=== PATIENT | male | born 1975 | race African-American/Black ===

== ENCOUNTER 2019-05-06 03:27 | Emergency (ER) | payer OTHER, SELFPAY ==
[2019-05-06] MEDS ORDERED: LIDOCAINE 1% W/EPI 1:100,000 MDV 20 ML VIAL ONE (03:41)
[2019-05-06] MEDS ORDERED: NA CHLORIDE 0.9% 1,000 ML ONE ×2 (03:44→05:08)
[2019-05-06 05:07] LABS: Absolute Lymphocytes (CBC) 1.3 K/uL (0.7-4.9); Basophils % 0.4 % (0-1.3); Hematocrit 36.9 % (39.6-49.0); Lymphocytes % 11.5 % (15.3-44.8); MPV 9.5 fL (7.6-11.3); RBC Red Blood Cell Count 4.16 M/uL (4.33-5.43)
[2019-05-06 05:27] LABS: Potassium 3.7 mmol/L (3.5-5.1)
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
[2019-05-06 06:59] VITALS: TEMP 98.2
[2019-05-06 07:04] VITALS: O2SAT 100
[2019-05-06 07:06] VITALS: BP 121/64
[2019-05-06] MEDS ORDERED: MUPIROCIN 2% OINT 22GM TUBE TOP ONE (08:06)
== END 2019-05-06 06:51 | disposition home or self-care (01) ==
LOC: ER 03:27
PROC: 0JQH0ZZ Repair Left Lower Arm Subcutaneous Tissue and Fascia, Open Approach (ICD-10-PCS; principal; 2019-05-06)
DX: S51.812A Laceration without foreign body of left forearm, initial encounter (principal); X99.1XXA Assault by knife, initial encounter; Y93.9 Activity, unspecified; Y92.9 Unspecified place or not applicable
CPT/HCPCS: 36415; 80048; 85025; 86850; 86900; 86901; 96360; 96361; 99284; J7030

== ENCOUNTER 2019-09-27 19:29 | Emergency (ER) | payer SELFPAY ==
[2019-09-27 20:29] LABS: Protime INR 1.06
[2019-09-27 20:30] LABS: Absolute Lymphocytes (CBC) 2.1 K/uL (0.7-4.9); Basophils % 0.7 % (0-1.3); Hematocrit 42.2 % (39.6-49.0); Lymphocytes % 16.6 % (15.3-44.8); MPV 9.1 fL (7.6-11.3); RBC Red Blood Cell Count 4.75 M/uL (4.33-5.43)
[2019-09-27 20:41] LABS: ALT/SGPT 33 U/L (12-78); AST/SGOT 22 U/L (15-37); Albumin 3.8 g/dL (3.4-5.0); Alkaline Phosphatase 65 U/L (45-117); BUN Blood Urea Nitrogen 16 mg/dL (7-18); Bicarbonate 28 mmol/L (21-32); Bilirubin Direct 0.2 mg/dL (0-0.2); Bilirubin Total 0.7 mg/dL (0.2-1.0); Glucose Level 97 mg/dL (74-106); Potassium 3.6 mmol/L (3.5-5.1); Protein, Total 7.8 g/dL (6.4-8.2); Sodium Level 141 mmol/L (136-145)
--- NOTE | 2019-09-27 21:01 | RAD REPORT ---
EXAM DESCRIPTION: RAD - Chest Single View - 09/27/2019 8:53 pm CLINICAL HISTORY: CHEST PAIN Chest pain. COMPARISON: No comparisons FINDINGS: Portable technique limits examination quality. The lungs are grossly clear. The heart is normal in size. No displaced fractures. IMPRESSION: No acute intrathoracic process suspected.
[2019-09-27] MEDS ORDERED: NA CHLORIDE 0.9% 1,000 ML ONE (21:40)
[2019-09-27 23:16] LABS: Urine Blood TRACE (NEG); Urine Glucose NEGATIVE (NEG); Urine Protein 1+ (NEG); Urine Specific Gravity >1.030 (1.005-1.030); Urine pH 5.5 (5.0-7.0)
[2019-09-27 23:25] LABS: Barbiturates NEGATIVE (NEGATIVE); Benzodiazepines NEGATIVE (NEGATIVE); Cocaine NEGATIVE (NEGATIVE); METHAMPHETAM NEGATIVE (NEGATIVE); Methadone NEGATIVE (NEGATIVE); Opiates NEGATIVE (NEGATIVE); Phencyclidine POSITIVE (NEGATIVE); THC Cannibis POSITIVE (NEGATIVE)
[2019-09-27 23:30] LABS: Urine Bacteria <20 /HPF (NONE SEEN); Urine Culture Reflex Order REFLEXED; Urine Mucus 1+ /HPF (NONE SEEN); Urine RBC <5 /HPF (NONE SEEN)
--- NOTE | 2019-09-28 07:37 | EKG ---
Test Date: 2019-09-27 Test Time: 19:58:44 Marketing Compliance Manager: RR MEASUREMENT RESULTS: Intervals: Rate: 91 FL: 164 QRSD: 84 QT: 366 QTc: 450 [place]: P: 64 FL: 164 QRS: 41 T: 45 INTERPRETIVE STATEMENTS: Normal sinus rhythm Normal ECG No previous ECG available for comparison Electronically Signed On 09-28-19 07:36:38 PHOTOGRAPHER NEWS by Tre Joe
[2019-09-28] MEDS ORDERED: LORazepam 2 MG/ML VIAL ONE (07:42)
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
[2019-09-28 10:45] VITALS: BP 125/75; TEMP 98.3; O2SAT 99
== END 2019-09-28 10:35 | disposition home or self-care (01) ==
LOC: ER 19:29
DX: F41.9 Anxiety disorder, unspecified (principal); R44.3 Hallucinations, unspecified; I10 Essential (primary) hypertension
CPT/HCPCS: 36415; 71045; 80048; 80076; 80307; 80320; 80329; 81003; 81015; 85025; 85610; 85730; 87086; 87088; 93005; 96361; 96374; 99285; J7030

== ENCOUNTER 2021-05-30 00:26 | Emergency (ER) | payer SELFPAY ==
[2021-05-30] MEDS ORDERED: IBUPROFEN 400 MG TAB ONE (00:57)
[2021-05-30] MEDS ORDERED: HYDROCODONE/APAP 7.5/325 MG TAB ONE (00:58)
[2021-05-30 01:27] VITALS: BP 140/100; TEMP 98.4; O2SAT 99
--- NOTE | 2021-05-30 01:57 | ER ---
Nurse's Notes [facility] Name: Román Ornelas Age: 45 yrs Sex: Male : 1975 Arrival Date: 05/30/2021 Time: 00:30 Bed 7 Private MD: Diagnosis: Nondisplaced fracture of lateral malleolus of left fibula;Fracture of lower end of tibia-left Presentation: 05/30 00:42 Chief complaint: Patient states: stepped off a curb yesterday, rolled left ankle, em denies other injures, unable to bear weight. Coronavirus screen: Vaccine status: Patient reports receiving the 2nd dose of the covid vaccine. Ebola Screen: Patient negative for fever greater than or equal to 101.5 degrees Fahrenheit, and additional compatible Ebola Virus Disease symptoms Patient denies exposure to infectious person. Patient denies travel to an Ebola-affected area in the 21 days before illness onset. No symptoms or risks identified at this time. Initial Sepsis Screen: Does the patient meet any 2 criteria? HR > 90 bpm. No. Patient's initial sepsis screen is negative. Does the patient have a suspected source of infection? No. Patient's initial sepsis screen is negative. Risk Assessment: Do you want to hurt yourself or someone else? Patient reports no desire to harm self or others. Onset of symptoms was May 30, 2021. 00:42 Method Of Arrival: Wheelchair em 00:42 Acuity: JOAQUIM 4 em Triage Assessment: 01:51 General: Appears in no apparent distress. Behavior is calm, cooperative. Pain: df1 Complains of pain in lateral aspect of left calf, left lateral ankle, left calf, left Achilles, medial aspect of left calf and left medial ankle. Historical: - Allergies: 00:44 No Known Allergies; em - PMHx: 00:44 Anxiety; Hypertension; em - PSHx: 00:44 None; em - Immunization history:: Adult Immunizations up to date. - Social history:: Smoking status: Patient denies any tobacco usage or history of. Screenin:51 Abuse screen: Denies threats or abuse. Nutritional screening: No deficits noted. df1 Tuberculosis screening: No symptoms or risk factors identified. Fall Risk None identified. Assessment: 01:53 General: Appears in no apparent distress. Behavior is calm, cooperative. Pain: df1 Complains of pain in lateral aspect of left calf, left lateral ankle, lateral aspect of left foot, left calf, left Achilles, left heel, medial aspect of left calf, left medial ankle, left willson and anterior aspect of left ankle Pain does not radiate. Pain at worst was 10 out of 10 on a pain scale. Quality of pain is described as sharp, Is continuous, Alleviated by rest, Aggravated by increased activity, Noted to be Current management is with Advil, 7.5mg [place]. Neuro: No deficits noted. Cardiovascular: No deficits noted. Respiratory: No deficits noted. GI: No deficits noted. : No deficits noted. EENT: No deficits noted. Derm: No deficits noted. Musculoskeletal: Swelling present in lateral aspect of left calf, left lateral ankle, left calf and left Achilles. 01:56 Musculoskeletal: Denies. df1 Vital Signs: 00:42 BP 140 / 100; Pulse 102; Resp 16; Temp 98.4; Pulse Ox 99% on R/A; Weight 92.99 kg; em Height 6 ft. 0 in. (182.88 cm); 01:18 Pain 8/10; tw5 01:57 BP 136 / 100; Pulse 89; Resp 18; Pulse Ox 99% on R/A; df1 00:42 Body Mass Index 27.80 (92.99 kg, 182.88 cm) em ED Course: 00:30 Patient arrived in ED. wm 00:35 Ariel Copeland PA is PHCP. cp 00:35 Janusz Joseph MD is Attending Physician. cp 00:44 Triage completed. em 00:44 Arm band placed on. em 00:51 Cary Lugo is Primary Nurse. kc4 01:12 XRAY Tib Fib LEFT Sent. df1 01:12 XRAY Foot LEFT 3 View Sent. df1 01:17 Crutch training done. Orthoglass splint: Posterior short lleg splint applied on left tw5 leg. stirrup splint applied on left leg. 01:48 XRAY Ankle LEFT 3 view Sent. df1 01:52 Patient has correct armband on for positive identification. Bed in low position. Call df1 light in reach. Side rails up X 1. Adult w/ patient. Pulse ox on. NIBP on. 01:52 No provider procedures requiring assistance completed. Patient did not have IV access df1 during this emergency room visit. 01:56 Jason Saeed MD is Referral Physician. cp Administered Medications: 00:58 Drug: Ibuprofen 800 mg Route: PO; df1 01:19 Follow up: Response: No adverse reaction tw5 00:58 Drug: Hydrocodone-Acetaminophen (7.5 mg-325 mg) 1 tabs Route: PO; df1 01:18 Follow up: Pain 8/10 Adult; Response: No adverse reaction; RASS: Alert and Calm (0) 5 Outcome: 01:17 Discharged to home with crutches, with family. tw5 01:17 Condition: good 01:17 Discharge instructions given to patient, family, Instructed on discharge instructions, crutch walking, Demonstrated understanding of instructions, follow-up care, medications, Prescriptions given X 2. 01:19 Patient left the ED. 01:57 Discharge ordered by . cp Signatures: Ge Ellis, RN RN Ariel Mac PA PA Laurne Valencia Kourtney kc4 Yvette Live df1 Ann-Marie Villar tw5
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
--- NOTE | 2021-05-30 08:47 | RAD REPORT ---
EXAM DESCRIPTION: RADRadha Woodard Left05/30/2021 1:26 am CLINICAL HISTORY: Left leg pain status post injury FINDINGS: Trimalleolar fracture. 2 centimeter posterior malleolar avulsion fracture. 6 millimeter medial malleolar avulsion fracture. Mildly to moderately displaced oblique lateral malleolar fracture. Soft tissue swelling. No dislocation seen
--- NOTE | 2021-05-30 08:47 | RAD REPORT ---
EXAM DESCRIPTION: RAD - Ankle Left 3 View -05/30/2021 1:37 am CLINICAL HISTORY: Left ankle pain status post injury FINDINGS: Trimalleolar fracture. 2 centimeter posterior malleolar avulsion fracture. 6 millimeter medial malleolar avulsion fracture. Mildly to moderately displaced oblique lateral malleolar fracture. Soft tissue swelling. No dislocation seen
--- NOTE | 2021-05-30 08:48 | RAD REPORT ---
EXAM DESCRIPTION: RAD - Foot Left 3 View - 05/30/2021 1:26 am CLINICAL HISTORY: Left Foot pain status post injury FINDINGS: Trimalleolar fracture. 2 centimeter posterior malleolar avulsion fracture. 6 millimeter medial malleolar avulsion fracture. Mildly to moderately displaced oblique lateral malleolar fracture. Soft tissue swelling. No dislocation seen
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
== END 2021-05-30 01:19 | disposition home or self-care (01) ==
LOC: ER 00:26
PROC: 2W3RX1Z Immobilization of Left Lower Leg using Splint (ICD-10-PCS; principal; 2021-05-30)
DX: S82.65XA Nondisplaced fracture of lateral malleolus of left fibula, initial encounter for closed fracture (principal); S82.302A Unspecified fracture of lower end of left tibia, initial encounter for closed fracture; I10 Essential (primary) hypertension; W10.1XXA Fall (on)(from) sidewalk curb, initial encounter; Y92.9 Unspecified place or not applicable
CPT/HCPCS: 99284

== ENCOUNTER 2023-02-20 13:40 | Emergency (ER) | payer SELFPAY ==
--- OUTSIDE RECORDS SUMMARY | 2023-02-20 13:44 | XMS REPORT | Continuity of Care Document ---
:1975 Author Organization [facility] t Address [address] [place] [address] Care Team Providers Name Role Phone PCP, PATIENT DOES NOT HAVE A Primary Care Physician Unavaila Kate Jeffrey Attending Clinician KATE MATA Attending Clinician Unavailable Hans Sam DO Attending Clinician HANS SAM Attending Clinician Unavailable Problems Condition Condition Condition Status Onset Resolution Last Treating Co mments Source Name Details Category Date Date Treatment Clinician Date No known No known Disease Unive rs active active ity of problems problems [facility] Allergies, Adverse Reactions, Alerts Allergy Allergy Status Severity Reaction(s) Onset Inactive Treating Comm ents Source Name Type Date Date Clinician NO KNOWN Drug Active Univers ALLERGIE Class ity of S [facility] Social History Social Habit Start Date Stop Date Quantity Comments Source Exposure to Not sure [facility] SARS-CoV-2 (event) Medica l Branch Sex Assigned At [birth year] [facility] 00:00:00 00:00:00 [facility] Smoking Status Start Date Stop Date Source Unknown if ever smoked [facility] Medications Ordered Filled Start Stop Current Ordering Indication Dosage Frequency Signature Comments Components Source Medication Medication Date Date Medication? Clinician (SIG) Name Name No known 2020-07 No Univers medications 1-15 ity of 17:43: [address] nicotine Yes 1{patch 1 Patch, Un farrah (NICODERM) 2-12 } Topical, ity o f 21 mg/24 hr 01:15: Administer [place] patch 1 00 over 24 Medical Patch Hours, Branch Q24H, First dose on [facility]onna 09/03/20 at 1915, Until Discontinu ed, Routine OLANZapine 5mg 5 mg, Unive rs (ZyPREXA) 09-03 Oral, ity of tablet 5 mg 20:00: 20:26 [place], [facility] 09/03/20 at [place] 1400, LIANNE Vital Signs Vital Name Observation Time Observation Value Comments Source Systolic blood 2020-09-04 00:00:00 137 mm[Hg] [facility] Diastolic blood 2020-09-04 00:00:00 96 [facility] Heart rate 2020-09-04 00:00:00 82 /min [facility] Respiratory rate 2020-09-04 00:00:00 20 /min General acute hospital Oxygen saturation in 2020-09-04 00:00:00 99 /min [facility] Arterial blood by [facility] Pulse oximetry [place] Body temperature 2020-09-03 18:30:00 36.22 [facility] Body weight 2020-09-03 18:25:00 83.915 kg [facility] Procedures Procedure Date / Time Performed Performing Clinician [facility] e CONSENT/REFUSAL FOR 2021-06-07 23:34:07 Doctor Unassigned, No Un [facility] DIAGNOSIS AND Name [facility] TREATMENT COVID-19 (ID NOW RAPID 2020-09-03 22:41:00 Hans Sam [facility] TESTING) [facility] URINALYSIS 2020-09-03 21:33:00 [facility] ADC / [facility] - DRUG 2020-09-03 21:33:00 [facility] SCREEN TRIAGE [facility] COMP. METABOLIC PANEL 2020-09-03 19:29:00 Hans Sam [facility] ([id number]) [facility] SALICYLATE 2020-09-03 19:29:00 [facility] ETHANOL 2020-09-03 19:29:00 [facility] NOTICE OF PRIVACY 2020-09-03 18:18:11 Doctor Unassigned, No Univ ersity [facility] PRACTICES Name Medical Branch CONSENT/REFUSAL FOR 2020-09-03 18:17:49 [facility]igned, [facility] Name [facility] TREATMENT Encounters Start End Encounter Admission Attending Care Care Encounter Source Date/Time Date/Time Type Type Clinicians Facility Department ID 2021-08-18 [facility] [id number] Common 14:14:06 [id number] [facility] 2021-06-07 2021-06-07 [facility] [id number] Univers 18:00:00 18:07:00 Kate BUENO [id number] i ty [facility] [id number] [facility] [id number] [address] 2021-06-07 2021-06-07 Emergency [facility] [id number] Univers 18:00:00 18:07:00 KATE blake [facility] 2020-09-03 2020-09-03 [facility] [id number] Univers 12:21:00 19:15:00 Hans Bueno [id number] i ty [facility] [id number] [facility] [id number] [address] 2020-09-03 2020-09-03 Emergency X [facility] ERT [id number] Univers 12:21:00 12:21:00 HANS blake [facility] Results Test Description Test Time Test Comments Results Result Comments Source COVID-19 (ID NOW RAPID TESTING) 2020-09-03 23:02:00 Test Item Value Reference Range Interpretation Comme nts SARS-CoV-2 Rapid ID NOW (test code Not Detected Not Detected = 87897-4) BOB (test code = BOB) ID NOW COVID-19 Assay is an isothermal nucleic acid amplification test intended for the qualitative detection of nucleic acid from SARS-CoV-2 viral RNA in nasopharyngeal (BEHAVIORAL HEALTH DIRECTOR) specimens. It is used under Emergency Use [...] indicated. Lab Interpretation (test code = Normal 79268-8) [facility] / [facility] - DRUG SCREEN [id number] 22:05:00 Test Item Value Reference Range Interpretation Comments BENZO U (test code = Negative Negative 5503515982) ZULEYKA U (test code = Negative Negative 5704008573) AMPHET (test code = Negative Negative 0285835624) THC (test code = Presumptive Negative A Confirmatio n of 1559468794) Positive Presumptive Positive THC result requires physician order . METHADONE (test code Negative Negative = 8446463939) Meth U (test code = Negative Negative 5233838613) OPIATES (test code = Negative Negative 5202329914) Cocaine Metabolite Presumptive Negative A (test code = Positive 3494032998) PROPOXY (test code = Negative Negative 6278914600) Tric U (test code = Negative Negative 7828894998) PCP (test code = Negative Negative 3883540728) OXYCOD (test code = Negative Negative 1930104777) BOB (test code = Urine Drug Cutoff [...] testing). Lab Interpretation Abnormal (test code = 07376-3) [facility] 21[facility]57:00 Test Item Value Reference Range Interpretation Comments APPEARANCE (test code = Clear Clear 1674004880) COLOR (test code = Yellow Yellow 6499743914) PH (test code = 4.8-8.0 3023448432) SP GRAVITY (test code = 1.003-1.030 5543557118) GLU U QUAL (test code = Normal Normal 3306725196) BLOOD (test code = Negative Negative 6813128221) KETONES (test code = Negative Negative 8085905468) PROTEIN (test code = Negative Negative 2887-8) UROBILIN (test code = Normal Normal 7750322221) BILIRUBIN (test code = Negative Negative 2162040346) NITRITE (test code = Negative Negative 5358657350) LEUK BRIAN (test code = Negative Negative 7754988805) RBC/HPF (test code = <1 See_Comment [Autom ated message] 1113280248) The system [employer] generated this result transmitted ref erence range: 0 - 3 HP F. The reference range was not used to int erpret this result as normal/abnormal . WBC/HPF (test code = See_Comment [Autom ated message] 2678881024) The system [employer] generated this result transmitted ref erence range: 0 - 5 HP F. The reference range was not used to int erpret this result as normal/abnormal . BACTERIA (test code = Few Negative A 4824112609) MUCOUS (test code = Slight Negative LPF A 5169297899) Lab Interpretation (test Abnormal code = 42456-4) [facility]21-[facility] 21:02:00 Test Item Value Reference Range Interpretation Comments ACETAMINOP (test code = <10.0 10-30 L 2661713878) BOB (test code = BOB) Toxic: Greater than 200 ug/mL @ 4 hour post ingestion or greater than 50 ug/mL @ 12 hour post ingestion Lab Interpretation (test Abnormal code = 51295-3) [facility] 21:02:00 Test Item Value Reference Range Interpretation Comments ALCOHOL (test code = <10 mg/dL 6373736905) BOB (test code = BOB) <10 [id number] Toxic>100 Depression of EDUCATION ASSISTANT>400 Fatalities Reported [facility]11 21:02:00 Test Item Value Reference Range Interpretation Comments SALICYLATE (test code <10 mg/L = 6244751889) BOB (test code = BOB) Therapeutic Range: ? Analgesic and Antipyretic Use ? 20-100 mg/L ? ? Anti-Inflammatory Use ? 100-250 mg/L Toxic Range: ? Greater than 300 mg/L [facility]OLIC PANEL (73062)2020-09-03 20:59:00 Test Item Value Reference Range Interpretation Comments NA (test code = 139 mmol/L 135-145 6021302819) K (test code = 4.2 mmol/L 3.5-5 2650894660) CL (test code = 103 mmol/L 98-108 9130281685) CO2 TOTAL (test code = 30 mmol/L 23-31 0517714222) AGAP (test code = 2-16 4191151742) BUN (test code = 10 mg/dL 7-23 3626613806) GLUCOSE (test code = 72 mg/dL 70-110 7929231023) CREATININE (test code = 0.99 mg/dL 0.6-1.25 1774498702) TOTAL BILI (test code = 0.6 mg/dL 0.1-1.0 4533417345) CALCIUM (test code = 8.9 mg/dL 8.6-10.6 6420403391) T PROTEIN (test code = 7.4 g/dL 6.3-8.2 8797530035) ALBUMIN (test code = 3.9 g/dL 3.5-5 9535617203) ALK PHOS (test code = 70 U/L 34-122 4009233450) ALTv (test code = 32 U/L 5-50 1742-6) AST(SGOT) (test code = 45 U/L 13-40 H 4274683643) eGFR Calculation mL/min/1.73m2 (Non-) (test code = 0509718141) eGFR Calculation mL/min/1.73m2 () (test code = 2282109286) BOB (test code = BOB) Association of [...] tests). Lab Interpretation Abnormal (test code = 94021-3) [facility]"
[2023-02-20 14:06] LABS: Absolute Lymphocytes (CBC) 2.5 K/uL (0.7-4.9); Hematocrit 50.7 % (39.6-49.0); Lymphocytes % 23.7 % (15.3-44.8); MCV 84.9 fL (80-100); MPV 8.2 fL (7.6-11.3); RBC Red Blood Cell Count 5.97 M/uL (4.33-5.43)
[2023-02-20] MEDS ORDERED: NA CHLORIDE 0.9% 1,000 ML ONE ×2 (14:12→14:58)
[2023-02-20] MEDS ORDERED: ONDANSETRON 4 MG/2 ML VIAL ONE (14:12)
[2023-02-20 14:41] LABS: Albumin 4.6 g/dL (3.4-5.0); Bilirubin Total 0.9 mg/dL (0.2-1.0); Potassium 4.4 mEq/L (3.5-5.1); Protein, Total 9.3 g/dL (6.4-8.2)
[2023-02-20] MEDS ORDERED: DICYCLOMINE HCL 20 MG/2 ML AMP IM ONE (14:48)
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
[2023-02-20 17:08] VITALS: TEMP 98.1; O2SAT 100
[2023-02-20 17:11] VITALS: BP 150/89
== END 2023-02-20 16:54 | disposition home or self-care (01) ==
LOC: ER 13:40
DX: R11.2 Nausea with vomiting, unspecified (principal)
CPT/HCPCS: 36415; 80053; 83690; 85025; 96361; 96372; 96374; 99284; J0500; J2405; J7030